=== PATIENT | female | born 1970 | race African-American/Black ===

== ENCOUNTER 2017-07-19 11:26 | Inpatient (IN) | payer MEDICAID ==
[~2017-07-19] VITALS: Ht 154.9 cm; Wt 56.7 kg
[~2017-07-19 11:26] MED LIST: ASPI81TA24 PO; FENO145T PO; FOLI1TAB19 PO; LISI-420 PO; LORA-476 PO
[2017-07-19 11:30] VITALS: BP 133/105
[2017-07-19] MEDS ORDERED: HYDROmorphone PFS 2 MG/ML SYR IVP ONE (12:10)
[2017-07-19] MEDS ORDERED: NACL 0.9% 1,000 ML IV ONE (12:10)
[2017-07-19] MEDS ORDERED: ONDANSETRON 4 MG/2 ML VIAL IVP ONE (12:10)
[2017-07-19 12:47] LABS: BASOPHILS # (AUTO) 0.1 K/uL (0.00-0.22); BASOPHILS % (AUTO) 3.8 % (0.0-2.0); EOSINOPHILS % (AUTO) 1.2 % (0.0-4.0); HEMATOCRIT 33.9 % (36-48); HEMOGLOBIN 11.3 g/dL (12.0-16.0); LYMPHOCYTES # (AUTO) 0.7 K/uL (2.5-16.5); LYMPHOCYTES % (AUTO) 21.4 % (20.5-51.1); MEAN CORPUSCULAR HEMOGLOBIN 32 pg (27-31); MEAN CORPUSCULAR HGB CONC 33 g/dL (33-37); MEAN CORPUSCULAR VOLUME 96 fL (80-94); MONOCYTES # (AUTO) 0.5 K/uL (0.8-1.0); MONOCYTES % (AUTO) 14.1 % (1.7-9.3); NEUTROPHILS # (AUTO) 1.9 K/uL (1.8-7.7); NEUTROPHILS % (AUTO) 59.5 % (42.2-75.2); PLATELET COUNT (AUTO) 128 K/uL (140-450); RED BLOOD CELL COUNT(AUTO) 3.55 MIL/uL (4.20-5.40); RED CELL DISTRIBUTION WIDTH 12.9 % (11.6-13.7); WHITE BLOOD COUNT (AUTO) 3.2 K/uL (4.8-10.8)
[2017-07-19 13:11] LABS: ALBUMIN 3.3 g/dL (3.4-5.0); ANION GAP 18.8 (8-16); CARBON DIOXIDE 25.9 mmol/L (21-32); CREATININE 0.6 mg/dL (0.6-1.3); POTASSIUM 3.7 mmol/L (3.5-5.1); TOTAL BILIRUBIN 0.7 mg/dL (0.0-1.0)
[2017-07-19] MEDS ORDERED: ONDANSETRON 4 MG/2 ML VIAL IVP PRN (16:35)
[2017-07-19] MEDS ORDERED: ACETAMINOPHEN 325 MG TAB PO PRN (16:35)
[2017-07-19] MEDS ORDERED: LORazepam 2 MG/ML VIAL IVP PRN (16:45)
[2017-07-19] MEDS ORDERED: MECLIZINE 25 MG TAB PO PRN (17:35)
[2017-07-19 18:00] VITALS: BP 140/101
[2017-07-19 18:14] LABS: PROTHROMBIN TIME 12.2 secs (10.8-13.4)
[2017-07-19 18:22] LABS: CHOL/HDL RATIO 5.5 (1-4.5); FREE T4 (FREE THYROXINE) 0.83 ng/dL (0.76-1.46); MAGNESIUM 1.1 mg/dL (1.8-2.4); PHOSPHORUS 3.6 mg/dL (2.5-4.9); THYROID STIMULATING HORMONE 2.85 uIU/mL (0.34-3.74)
[2017-07-19] MEDS: HYDROcodone/APAP 7.5/325 MG 1 TAB PO PRN (18:55)
[2017-07-19] MEDS: NACL 0.9% 1,000 ML IV SCH (18:55)
[2017-07-19] MEDS: LEVOFLOXACIN 750 MG/D5W PREMIX 150 ML IV SCH (20:39)
[2017-07-19 20:47] VITALS: BP 138/78
[2017-07-19] MEDS: ENALAPRIL 2.5 MG TAB PO SCH (20:50)
[2017-07-19] MEDS: DOCUSATE SODIUM 100 MG GELCAP PO SCH (20:51)
[2017-07-19] MEDS: metroNIDAZOLE 500 MG/NS PREMIX 100 ML IV SCH (20:51)
[2017-07-19] MEDS: CARVEDILOL 3.125 MG TAB PO SCH (20:51)
[2017-07-19] MEDS: LORazepam 1 MG TAB PO SCH (20:51)
[2017-07-20] VITALS (7 sets, daily range): BP systolic 111–157; BP diastolic 62–95
[2017-07-20] MEDS: HYDROcodone/APAP 7.5/325 MG 1 TAB PO PRN (01:11)
[2017-07-20] MEDS: metroNIDAZOLE 500 MG/NS PREMIX 100 ML IV SCH (05:07)
[2017-07-20] MEDS: LORazepam 1 MG TAB PO SCH ×2 (05:07→13:00)
[2017-07-20] MEDS ORDERED: LACTULOSE 20 GM/30 ML UDC PO ONE (07:45)
[2017-07-20 07:58] LABS: BASOPHILS # (AUTO) 0.2 K/uL (0.00-0.22); BASOPHILS % (AUTO) 4.9 % (0.0-2.0); EOSINOPHILS % (AUTO) 1.5 % (0.0-4.0); HEMATOCRIT 30.4 % (36-48); HEMOGLOBIN 10.2 g/dL (12.0-16.0); LYMPHOCYTES # (AUTO) 1.1 K/uL (2.5-16.5); LYMPHOCYTES % (AUTO) 36.3 % (20.5-51.1); MEAN CORPUSCULAR HEMOGLOBIN 32 pg (27-31); MEAN CORPUSCULAR HGB CONC 33 g/dL (33-37); MEAN CORPUSCULAR VOLUME 96 fL (80-94); MONOCYTES # (AUTO) 0.3 K/uL (0.8-1.0); NEUTROPHILS # (AUTO) 1.5 K/uL (1.8-7.7); NEUTROPHILS % (AUTO) 46.3 % (42.2-75.2); PLATELET COUNT (AUTO) 99 K/uL (140-450); RED BLOOD CELL COUNT(AUTO) 3.16 MIL/uL (4.20-5.40); RED CELL DISTRIBUTION WIDTH 12.2 % (11.6-13.7); WHITE BLOOD COUNT (AUTO) 3.1 K/uL (4.8-10.8)
[2017-07-20 08:11] LABS: ANION GAP 12.8 (8-16); CREATININE 0.5 mg/dL (0.6-1.3)
[2017-07-20 08:13] LABS: POTASSIUM 2.8 mmol/L (3.5-5.1)
[2017-07-20 08:19] LABS: MAGNESIUM 1.1 mg/dL (1.8-2.4); PHOSPHORUS 3.8 mg/dL (2.5-4.9)
[2017-07-20] MEDS ORDERED: KCL 20 MEQ/WATER INJ PREMIX 200 ML IV ONE (08:20)
[2017-07-20] MEDS ORDERED: MAG SULF 2000 MG/WATER PREMIX 50 ML IV SCH (08:21)
[2017-07-20] MEDS ORDERED: POTASSIUM CHLORIDE 10 MEQ TABER PO SCH (08:22)
[2017-07-20] MEDS: DOCUSATE SODIUM 100 MG GELCAP PO SCH (08:51)
[2017-07-20] MEDS: CARVEDILOL 3.125 MG TAB PO SCH (08:51)
[2017-07-20] MEDS: ENALAPRIL 2.5 MG TAB PO SCH (08:52)
[2017-07-20] MEDS ORDERED: MULTIVITAMIN 1 TAB PO SCH (09:00)
[2017-07-20] MEDS ORDERED: POTASSIUM CHLORIDE 40 MEQ in NACL 0.9% 250 ML IV SCH (09:00)
[2017-07-20] MEDS ORDERED: LACTOBACILLUS RHAMNOSUS GG 1 EACH CAP PO SCH (09:00)
[2017-07-20] MEDS ORDERED: FOLIC ACID 1 MG TAB PO SCH (09:00)
[2017-07-20] MEDS ORDERED: THIAMINE 100 MG TAB PO SCH (09:00)
[2017-07-20] MEDS ORDERED: PANTOPRAZOLE 40 MG INJ VIAL IVP SCH (09:00)
[2017-07-20] MEDS ORDERED: LACTULOSE 20 GM/30 ML UDC PO SCH (09:00)
[2017-07-20] MEDS: LEVOFLOXACIN 750 MG/D5W PREMIX 150 ML IV SCH (09:00)
[2017-07-20] MEDS ORDERED: DICYCLOMINE HCL LIQUID 10 MG/5 ML UDC PO SCH (09:52)
[2017-07-20] MEDS ORDERED: ALUMINUM HYD/MAG/SIMETHICONE 30 ML UDC PO SCH (09:52)
[2017-07-20] MEDS ORDERED: LIDOCAINE VISCOUS 2% 20 ML UDC PO SCH (09:52)
[2017-07-20] MEDS: NACL 0.9% 1,000 ML IV SCH (12:34)
[2017-07-20 14:29] LABS: APPEARANCE,URINE HAZY (CLEAR); BILIRUBIN,URINE 1+ (NEGATIVE); BLOOD, URINE 3+ (NEGATIVE); COLOR,URINE ORANGE (YELLOW); LEUKOCYTE ESTERASE ,URINE TRACE (NEGATIVE); NITRITE, URINE POSITIVE (NEGATIVE); PH,URINE 6.5 (5.0-9.0); UGLUCOSE NEGATIVE (NEGATIVE)
[2017-07-20 14:32] LABS: BARBITURATE, URINE NEG. ng/ml (NEG <=200); BENZODIAZEPINE, URINE NEG. ng/mL (NEG <=200); CANNABINOID, URINE POS. ng/mL (NEG <=50); COCAINE, URINE NEG. ng/mL (NEG <=300); OPIATE, URINE POS. ng/mL (NEG <=2000); PHENCYCLIDINE SCREEN,URINE NEG. ng/mL (NEG <=25)
[2017-07-20 14:38] LABS: RBC,URINE 3-10 (FEW) /HPF (0-5)
[2017-07-20] MEDS ORDERED: VITA1TAB44 PO (17:02)
[2017-07-20] MEDS ORDERED: LORA-476 PO (17:02)
[2017-07-20] MEDS ORDERED: NITR100C7 PO (17:04)
[2017-07-22 06:16] LABS: FOLIC ACID 5.2 ng/mL (>3.0)
== END 2017-07-20 17:20 | disposition left against medical advice (07) | DRG 279 ==
LOC: MED 11:26 → MTU 16:41 → UNDOADMIN 16:41
PROVIDERS: ADMIT Student in an Organized Health Care Education/Training Program; ATTEND Student in an Organized Health Care Education/Training Program
DX: K72.90 Hepatic failure, unspecified without coma (principal); I50.43 Acute on chronic combined systolic (congestive) and diastolic (congestive) heart failure; G92 Toxic encephalopathy; I27.20 Pulmonary hypertension, unspecified; E44.1 Mild protein-calorie malnutrition; G90.9 Disorder of the autonomic nervous system, unspecified; I25.10 Atherosclerotic heart disease of native coronary artery without angina pectoris; D64.9 Anemia, unspecified; R74.0 Nonspecific elevation of levels of transaminase and lactic acid dehydrogenase [LDH]; I11.0 Hypertensive heart disease with heart failure; N39.0 Urinary tract infection, site not specified; K74.60 Unspecified cirrhosis of liver; F14.11 Cocaine abuse, in remission; E78.5 Hyperlipidemia, unspecified; F10.20 Alcohol dependence, uncomplicated; F17.210 Nicotine dependence, cigarettes, uncomplicated; Z91.19 Patient's noncompliance with other medical treatment and regimen; Z68.23 Body mass index [BMI] 23.0-23.9, adult
CPT/HCPCS: 36415; 70450; 71045; 80048; 80053; 80305; 81001; 82140; 82150; 82607; 82728; 82746; 83036; 83540; 83605; 83615; 83690; 83735; 83880; 84100; 84439; 84443; 84484; 84702; 85025; 85045; 85610; 85730; 87040; 87081; 87086; 87186; 93005; 93880; 96361; 96374; 96375; 99285; C9113; G0482; J1170; J1956; J2405; J3475; J3480; J3490; J7030; Q0092